=== PATIENT | female | born 1965 | race African-American/Black ===

== ENCOUNTER 2017-02-05 16:44 | Emergency (ER) | payer OTHER ==
[~2017-02-05] VITALS: Ht 154.9 cm; Wt 58.1 kg
[2017-02-05] MEDS ORDERED: IV NORMAL SALINE 1,000ML 1,000 ML IV SCH (17:23)
--- NOTE | 2017-02-05 17:31 | PHYS DOC ---
General Chief Complaint: CHEST PAIN Stated Complaint: CHEST PAIN Time Seen by MD: 17:07 Source: patient Exam Limitations: no limitations Problems: History of Present Illness Initial Comments Patient is a 51-year-old female brought to the ED by her significant other with chest discomfort. Patient states that last night she developed right sided headache, she has history of migraine headaches and this discomfort was typical with prior symptoms. She did have one cocktail last night, states she is sensitive to etoh and even one drink causes intoxication. She says this morning when she awoke her headache was persistent so she took an Imitrex with quick resolution of her cephalgia. She denies recent head trauma or focal neuro deficit with the headache. She says this morning she had a panic attack consistent with prior, she says she has these frequently and her was able to talk her into calming down. Later this morning she states approximately 10 AM she developed mild burning/sharp epigastric/chest discomfort. She says the discomfort comes and goes, it is sharp and stabbing she points to the epigastrium/sternum. The discomfort is not reproducible and not related to activity or PO intake, she's had some slight shortness of breath with the panic attack, no arm or neck symptoms no palpitations or dizziness. She says she's had one loose watery stool today and she vomited once right before coming to the emergency department. Allergies: Coded Allergies: No Known Drug Allergies (Unverified , 02/05/17) Past Medical History Medical History: other (osteoarthritis, GERD, panic attack disorder, generalized anxiety disorder, hypertension) Surgical History: other ( section, hysterectomy, breast biopsy (benign) ) Social History Smoker: non-smoker Alcohol: none Drugs: none Review of Systems Constitutional: denies chills, denies diaphoresis, denies fever, denies malaise , denies weakness Respiratory: see HPI, denies cough, denies orthopnea, denies wheezing Cardiovascular: see HPI, denies palpitations, denies syncope Gastrointestinal: see HPI, denies constipation, diarrhea, nausea, vomiting Genitourinary: denies dysuria, denies frequency, denies hematuria Musculoskeletal: denies back pain, denies joint swelling, denies neck pain Psychiatric/Neurological: see HPI, denies numbness, denies paresthesia, denies weakness Hematologic/Lymphatic: denies blood clots, denies easy bleeding, denies easy bruising Physical Exam General Appearance: WD/WN, mild distress (very anxious) Eyes: bilateral eye normal inspection, bilateral eye PERRL, bilateral eye EOMI Ear, Nose, Throat: hearing grossly normal, normal ENT inspection, normal pharynx Neck: non-tender, supple Respiratory: chest non-tender, normal breath sounds, no respiratory distress Cardiovascular: normal peripheral pulses, regular rate, rhythm, no edema Gastrointestinal: normal bowel sounds, non tender, soft (ND, neg mcburney/ car no mass) Back: no CVA tenderness, no vertebral tenderness Extremities: non-tender, normal inspection, no pedal edema 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 Interpreted by me PATIENT: SAMANTHA ZULETA ACCOUNT: [id number] : 1965 LOCATION: ER AGE: 51 SEX: F EXAM STATUS: DEP ER ORD. PHYSICIAN: CYRUS LLAMAS DO REASON: epigastric/chest discomfort PROCEDURE: ACUTE ABDOMEN SERIES Two-view abdominal series and PA view chest x-ray History: Epigastric abdominal pain. Left-sided chest pain today. Findings: Mild fecal retention is seen within the colon. No obstructive bowel pattern is seen. No significant air-fluid levels are seen. No free intraperitoneal air is seen. Scoliosis is seen. Calcified phleboliths are seen within the right side of the anatomic pelvis. Chest x-ray demonstrates no acute lung infiltrate or pleural effusion or pulmonary edema or pneumothorax. The heart size and pulmonary vasculature and mediastinum and both ga are unremarkable. IMPRESSION: No acute radiographic abnormality. DICTATED AND SIGNED BY: TOM HAMMOND MD DATE: 02/06/17 5847 CC: PCP,CAMILO; CYRUS LLAMAS DO ~ Reassuring labs 1824: Pt rechecked, states GI cocktail resolved symptoms. Symptoms appear to be GI, but with pt risk factors for CAD I did offer pt observation admission for serial CE to definitively rule out ACS. Pt confident at this point sx anxiety/GI related, she refuses hospitalization. I discussed tx plan she expressed agreement/understanding. Departure Time of Disposition: 18:27 Disposition: 01 HOME, SELF-CARE Diagnosis: GERD, gastritis Condition: IMPROVED Patient Instructions: Diet for Gastroesophageal Reflux Disease, Adult, Easy-to- Read, Gastritis, Adult, [id number], Gastroesophageal Reflux Disease, Adult, [id number] Additional Instructions: Please review the patient education materials given to you by ED staff. Pain particular attention to dietary and lifestyle changes. Continue OTC Protonix, add Pepcid 20 mg twice daily for the next 7 days. Prescription: Simethicone take as directed Follow-up with your doctor on Friday for recheck if not better. Return to the ED with new or changing symptoms. CYRUS LLAMAS DO Feb 05, 2017 17:31
[2017-02-05 17:40] LABS: BASO % 1 % (0-3); EOS # 0.2 x10^3/uL (0.0-0.7); EOS % 3 % (0-3); HEMATOCRIT 37.9 % (36.0-47.0); HEMOGLOBIN 12.6 g/dL (12.0-15.5); LYMPH # 2.7 x10^3/uL (1.0-4.8); LYMPH % 47 % (24-48); MEAN CORPUSCULAR HEMOGLOBIN 29 pg (25-35); MEAN CORPUSCULAR HGB CONC 33 g/dL (31-37); MEAN CORPUSCULAR VOLUME 88 fL (79-100); MONO # 0.7 x10^3/uL (0.0-1.1); MONO % 12 % (0-9); NEUT # 2.1 x10^3uL (1.8-7.7); NEUT % 37 % (31-73); PLATELET COUNT 272 x10^3/uL (140-400); RED BLOOD COUNT 4.32 x10^6/uL (3.50-5.40); RED CELL DISTRIBUTION WIDTH 13.5 % (11.5-14.5); WHITE BLOOD COUNT 5.7 x10^3/uL (4.0-11.0)
[2017-02-05] MEDS ORDERED: LIDO:MAALOX 1:1 20 ML SINGLE DOSE PO ONE (17:45)
[2017-02-05] MEDS ORDERED: ONDANSETRON PF 4 MG/2 ML VIAL. IV ONE (17:45)
[2017-02-05] MEDS ORDERED: FAMOTIDINE 20 MG/2 ML VIAL IVP ONE (17:45)
[2017-02-05 17:47] LABS: ALBUMIN 3.9 g/dL (3.4-5.0); CALCIUM 9.1 mg/dL (8.5-10.1); GFR 71.3; POTASSIUM 3.9 mmol/L (3.5-5.1); TOTAL BILIRUBIN 0.3 mg/dL (0.2-1.0)
--- NOTE | 2017-02-05 17:48 | EKG ---
[address] [address] Test Date: 2017-02-05 Test Time: 16:57:35 Pat Name: SAMANTHA ZULETA Department: Room: Gender: F Door Assembler: JASON : 1965 Requested By: CYRUS LLAMAS Order Number: [id number] Reading MD: Measurements Intervals [place] Rate: 76 P: 67 IN: 138 QRS: 69 QRSD: 84 T: 58 QT: 362 QTc: 411 Interpretive Statements SINUS RHYTHM MODERATE AMPLITUDE CRITERIA FOR LVH NON SPECIFIC T ABNORMALITY RI6.01 Unconfirmed report No previous ECG available for comparison
[2017-02-05] MEDS ORDERED: SIMETHICONE 80 MG TAB.CHEW PO PRN (18:30)
[2017-02-05 18:32] VITALS: BP 126/68
[2017-02-05] MEDS ORDERED: POLYETHYLENE GLYCOL 3350 17 GM PACKET. PO ONE (18:45)
--- NOTE | 2017-02-06 07:57 | RAD ---
Two-view abdominal series and PA view chest x-ray History: Epigastric abdominal pain. Left-sided chest pain today. Findings: Mild fecal retention is seen within the colon. No obstructive bowel pattern is seen. No significant air-fluid levels are seen. No free intraperitoneal air is seen. Scoliosis is seen. Calcified phleboliths are seen within the right side of the anatomic pelvis. Chest x-ray demonstrates no acute lung infiltrate or pleural effusion or pulmonary edema or pneumothorax. The heart size and pulmonary vasculature and mediastinum and both ga are unremarkable. IMPRESSION: No acute radiographic abnormality.
== END 2017-02-05 18:45 | disposition home or self-care (01) ==
LOC: ER 16:44
DX: K21.9 Gastro-esophageal reflux disease without esophagitis (principal); K29.70 Gastritis, unspecified, without bleeding; I10 Essential (primary) hypertension; F41.8 Other specified anxiety disorders; M19.90 Unspecified osteoarthritis, unspecified site
CPT/HCPCS: 36415; 74022; 80053; 80320; 82550; 83690; 84484; 85027; 93005; 96361; 96374; 96375; 99285; J2405; S0028; G0480; J7030